=== PATIENT | female | born 1985 | race Caucasian/White ===

== ENCOUNTER 2018-02-10 12:22 | Emergency (ER) | payer OTHER ==
[~2018-02-10] VITALS: Ht 165.1 cm; Wt 102.7 kg
[2018-02-10 12:27] VITALS: TEMP 36.7; Ht 165.1 cm; Wt 102.7 kg
[2018-02-10] MEDS ORDERED: DIPHTHERIA/TETANUS/PERTUSSIS 0.5 ML SYR/VIAL IM. ONE (14:00)
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
--- NOTE | 2018-02-10 15:20 | DIAGNOSTIC IMAGING REPORT ---
PA CHEST WITH LEFT-SIDED RIB SERIES CLINICAL HISTORY: Left-sided chest wall pain. FINDINGS: A PA chest radiograph with 4 additional views may left-sided rib series is obtained. No prior studies are available for comparison at the time of dictation. The cardiomediastinal silhouette is unremarkable. The lungs and pleural spaces are clear. No pneumothorax is seen. There is no radiographic evidence of acute/distracted left-sided rib fracture on the rib series. The remainder of the bony thorax is grossly intact. IMPRESSION: 1. The lungs are clear. 2. There is no radiographic evidence of acute/distracted left-sided rib fracture on the rib series. Electronically signed by: oJnes Daniels M.D. 02/10/2018 3:19 PM Dictated Date/Time: 02/10/2018 3:16 PM
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
[2018-02-10 15:50] VITALS: BP 102/78; PULSE 83; O2SAT 97
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
== END 2018-02-10 15:50 | disposition home or self-care (01) ==
LOC: C.EDB 12:24 → C.EDD 15:50
DX: S02.40DA Maxillary fracture, left side, initial encounter for closed fracture (principal); S16.1XXA Strain of muscle, fascia and tendon at neck level, initial encounter; S06.0X0A Concussion without loss of consciousness, initial encounter; S20.212A Contusion of left front wall of thorax, initial encounter; T74.11XA Adult physical abuse, confirmed, initial encounter; Y04.2XXA Assault by strike against or bumped into by another person, initial encounter; F17.200 Nicotine dependence, unspecified, uncomplicated; Z23 Encounter for immunization

== ENCOUNTER 2023-08-27 04:58 | Inpatient (IN) ==
[2023-08-27] MEDS ORDERED: LACTATED RINGER'S 1,000 ML IV PRN (05:30)
[2023-08-27] MEDS ORDERED: OXYTOCIN 30 UNITS/NSS 30 UNITS/500 ML BAG IV PRN ×2 (05:30→07:38)
[2023-08-27] MEDS ORDERED: LIDOCAINE 1% LOCAL 20 ML VIAL INFIL PRN (05:30)
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
[2023-08-27] MEDS ORDERED: PENICILLIN GK 6 MU in DEXTROSE 5% 250 ML IV STA (05:43)
[2023-08-27] MEDS ORDERED: INFLUENZA VIRUS QUADRIVALENT VACCINE (IIV4) 0.5 ML SYR IM ONE (05:53)
[2023-08-27 06:33] LABS: Hematocrit (blood only) 37.1 % (37.0-47.0); Hemoglobin 12.3 g/dl (12.0-16.0); Mean Corpuscular Hemoglobin 26.7 pg (25.0-34.0); Mean Corpuscular Hgb Conc 33.2 g/dL (32.0-36.0); Mean Corpuscular Volume 80.7 fL (80.0-100.0); Platelet Count 178 K/uL (130-400); RDW Coefficient of Variation 13.7 % (11.5-14.5); RDW Standard Deviation 39.4 fL (36.4-46.3); White Blood Count 24.64 K/ul (4.8-10.8)
[2023-08-27] MEDS ORDERED: SODIUM CHLORIDE 0.9% 250 ML IV PRN (07:16)
[2023-08-27] MEDS ORDERED: HYDROCORTISONE ACETATE 25 MG SUPP PR PRN (07:38)
[2023-08-27] MEDS ORDERED: DIPHTHERIA/TETANUS/PERTUSSIS Vaccine (Tdap, Age 7+yrs) 0.5mL SYR/VL IM ONE (07:38)
[2023-08-27] MEDS ORDERED: BENZOCAINE 20% SPRY 85 APPLN/85 GM CAN EXT PRN (07:38)
[2023-08-27] MEDS ORDERED: MEASLES, MUMPS & RUBELLA VIRUS VACCINE (MMR) VIAL SQ ONE (07:38)
[2023-08-27] MEDS ORDERED: bisacodyL 10 MG SUPP PR PRN (07:38)
--- NOTE | 2023-08-27 07:40 | Delivery Summary ---
Vaginal Delivery Summary Date of Service August 27, 2023 Vaginal Delivery Summary and 1st Degree LAC PREOPERATIVE DIAGNOSIS: 1. Single intrauterine at 41 2/7 wga 2. Labor 3. GBS+ 4. AMA 5. Late to care POSTOPERATIVE DIAGNOSIS: 1. Single intrauterine at 41 2/7 wga 2. Labor 3. GBS+ 4. AMA 5. Late to care 6. Delivered PROCEDURE: 1. Normal spontaneous vaginal delivery. 2. Manual extraction of placenta SURGEON: Bushra Davis MD ANESTHESIA: Epidural. ESTIMATED BLOOD LOSS: 300 mL FLUIDS: Continuous LR. URINE OUTPUT: None. COMPLICATIONS: Shoulder dystocia CONDITION: Stable. INDICATIONS: 38 yo at 41 2/7 wga presented w/ contractions increasing in frequency and intensity. She noted SROM around 1am but not sure exactly of time as that is when ctx also began. On arrival she was 8cm. Penicillin started for GBS+ status. She progressed to complete and desired to push FINDINGS: A viable female infant, weight pending with Apgars of 8 and 9 at 1 and 5 minutes respectively. SPECIMEN: Cord blood OPERATIVE REPORT: The patient progressed to 10 cm, 100% effaced and +2 station, pushed over intact perineum with anesthesia to deliver a viable female infant, weight and Apgars as above. Head of delivered in JOELLE position. No nuchal cord was present. Body and shoulders did not delivery easily with gentle downward traction. Shoulder dystocia was called, head of bed lowered and McRobert's maneuver and suprapubic pressure applied. Shoulders an body were then delivered. was delivered to maternal abdomen and nursing staff. Delayed cord clamping was performed for 60 seconds. Cord was clamped and cut. Cord blood was obtained. Placenta was placed on gentle traction however cord was noted to have avulsed very easily. Manual extraction was performed to deliver placenta intact, sweep of the uterus did not reveal retained placenta. IV oxytocin and fundal massage were given for excellent hemostasis. Vagina, cervix, perineum, and placenta were inspected. A first degree laceration was noted and repaired using 4-0 vicryl. Sponge and needle counts correct x2. No sponges were left behind. Mother and stable in immediate period. Ancef x 24 hours will be given, events of delivery and placenta removal were reviewed with the family [facility] [place] Vaginal Delivery Charge Vaginal Delivery Codes: 71978 global code for the antepartum, delivery, and po st- Delivery Type Details: and 1st Degree LAC
[2023-08-27] MEDS: DOCUSATE SODIUM 100 MG CAP PO SCH ×2 (08:18→19:30)
[2023-08-27] MEDS: IBUPROFEN 600 MG TAB PO PRN ×3 (08:18→19:30)
[2023-08-27] MEDS: FERROUS SULFATE 325 MG TAB PO SCH (08:18)
[2023-08-27] MEDS: PRENATAL VITAMIN 1 TAB PO SCH (08:18)
[2023-08-27] MEDS: ceFAZolin 2000MG 2,000 MG/15 ML SYR IV SCH ×2 (08:22→16:24)
[2023-08-27] MEDS ORDERED: PENICILLIN GK 3 MU in DEXTROSE 5% 100 ML IV PRN (08:30)
[2023-08-27] MEDS: ACETAMINOPHEN 325 MG TAB PO PRN ×2 (08:57→19:31)
[2023-08-28] MEDS: ceFAZolin 2000MG 2,000 MG/15 ML SYR IV SCH ×2 (00:08→08:45)
[2023-08-28] MEDS: IBUPROFEN 600 MG TAB PO PRN ×4 (00:08→19:28)
[2023-08-28] MEDS: ACETAMINOPHEN 325 MG TAB PO PRN (04:03)
[2023-08-28] MEDS: DOCUSATE SODIUM 100 MG CAP PO SCH ×2 (08:45→19:28)
[2023-08-28] MEDS: PRENATAL VITAMIN 1 TAB PO SCH (08:45)
[2023-08-28] MEDS: FERROUS SULFATE 325 MG TAB PO SCH (08:45)
--- NOTE | 2023-08-28 08:53 | Obstetrical Progress Note ---
Date of Service August 28, 2023 Assessment & Plan (1) Elderly multigravida: PPD#1 doing well. Desires DC home tomorrow. Routine care. Subjective Ambulation: ambulating normally Voiding: no voiding problems Diet Tolerance:: regular diet Lochia:: Moderate Review of Systems All systems reviewed & are unremarkable except as noted in HPI & below Physical Exam Constitutional WD/WN, vitals as above no acute distress Respiratory normal respiratory effort Cardiovascular Rate/Rhythm: regular rate and regular rhythm Gastrointestinal (Abdomen) Inspection/Auscultation: abdomen normal to inspection; abdomen not distended Percussion/Palpation: abdomen soft Genitourinary OB Exam Abdomen: + fundal height Fundus: + firm; not tender Results & Data Vital Signs (Past 12 Hours) Vital Signs Temp Pulse Resp BP Pulse Ox O2 Del Method 08/28/23 03:30 36.6 C 74 16 105/67 96 Room Air 08/28/23 00:20 36.5 C 99 H 18 116/75 98 Room Air
[2023-08-28] MEDS ORDERED: Nursing to Pharmacy Communication SCH (15:30)
[2023-08-28] MEDS ORDERED: bisacodyL 5 MG TABEC PO SCH (20:00)
--- NOTE | 2023-08-29 06:01 | Obstetrical Progress Note ---
Date of Service August 29, 2023 Assessment & Plan (1) Encounter for care after hospital delivery: Plan -Vital signs reviewed and WNL -HGB reviewed Blood type B+ Rubella equivocal s/p MMR Pt doing well clinically Encourage ambulation Monitor and control pain with Motrin prn Monitor lochia Encourage PT counselled on discharge instructions Admission and Anticipated Discharge Date Admission Date: August 27, 2023 Supervising Physician Co-Signing Physician Notes Resident Physician Supervision Note: I was present with Dr. Jason Hernandez during the history and exam. I discussed the case with the resident and agree with the findings and plan as documented in the note. Any exceptions or clarifications are listed here: PPD#2 doing well. DC instructions. Followup 6w PP. Documented By: Ale Pradhan, Subjective 38 yo post- day 2 s/p Ambulation: ambulating normally Voiding: no voiding problems Passing Gas:: Yes Diet Tolerance:: regular diet Lochia:: Small Feeding Type:: Breast Feeding Current Pain Level: Minimal Resting comfortably this AM in NAD. Denies FAUST, CP, SOB, N/V/D, LE pain/swelling. Review of Systems Review of Systems: All systems reviewed & are unremarkable except as noted in HPI & below Physical Exam Physical Exam: General: patient resting comfortably, NAD, non-toxic in appearance, AA&O x 4, answers questions appropriately. Skin: warm, dry, intact HEENT: NC/AT, anicteric sclera, conjunctiva without injection, moist mucus membranes. Heart: +S1/S2, regular, no m/r/g Lungs: equal air entry bilaterally, no rales/rhonchi/wheezes Abd: +BS, soft, NT/ND, uterine fundus firm at umbilicus Ext: warm, no clubbing/cyanosis or edema, Margarita's neg. Neuro: nonfocal, patient AA&O x 4, speech intact, no facial droop, moving all extremities on command. Results & Data Vital Signs (Past 12 Hours) Vital Signs Temp Pulse Resp BP Pulse Ox O2 Del Method 08/29/23 01:10 36.6 C 92 H 20 122/78 96 Room Air 08/28/23 19:35 36.5 C 104 H 20 151/78 H 98 Room Air Resident Activity Tracking Resident Involvement: Resident Care Provided Care Provided: OB Delivery
[2023-08-29] MEDS: FERROUS SULFATE 325 MG TAB PO SCH (07:59)
[2023-08-29] MEDS: PRENATAL VITAMIN 1 TAB PO SCH (07:59)
[2023-08-29] MEDS: DOCUSATE SODIUM 100 MG CAP PO SCH (07:59)
[2023-08-29] MEDS: IBUPROFEN 600 MG TAB PO PRN (08:00)
== END 2023-08-29 15:15 | disposition home or self-care (01) | DRG 807 ==
LOC: OPB 04:58 → 4S1 05:01 → 4E2 09:14